=== PATIENT | male | born 1990 | race Caucasian/White ===

== ENCOUNTER 2020-01-09 22:43 | Emergency (ER) | payer BC, OTHER ==
[2020-01-09 22:57] VITALS: BP 143/98
== END 2020-01-10 01:38 | disposition left against medical advice (07) ==
LOC: ED 22:43
DX: Z53.21 Procedure and treatment not carried out due to patient leaving prior to being seen by health care provider (principal)

== ENCOUNTER 2020-01-13 08:00 | Outpatient (CLI) | payer BC | END 2020-01-13 23:59 | disposition home or self-care (01) | LOC: LAB.R 08:00 | PROVIDERS: ATTEND Physician Assistant | DX: K12.2 Cellulitis and abscess of mouth (principal); Z20.828 Contact with and (suspected) exposure to other viral communicable diseases | CPT/HCPCS: 87070 ==

== ENCOUNTER 2020-01-13 08:00 | Outpatient (CLI) | payer BC | END 2020-01-13 23:59 | disposition home or self-care (01) | LOC: LAB.R 08:00 | PROVIDERS: ATTEND Physician Assistant | DX: K12.2 Cellulitis and abscess of mouth (principal) | CPT/HCPCS: 87070 ==